=== PATIENT | male | born 1985 | race Caucasian/White ===

== ENCOUNTER → 2017-01-24 | Outpatient (CLI) | payer OTHER ==
[2015-10-21 18:05] VITALS: BP 126/81
[~2017-01-24] MED LIST: NS 100 ML IV 100 ML IV ONE
[2017-01-24 09:09] LABS: CREATININE 0.97 mg/dL (0.70-1.30)
--- NOTE | 2017-01-24 10:52 | CT ---
HISTORY: Renal cell carcinoma. Study: CT abdomen and pelvis with and without contrast Comparison: CT abdomen/pelvis dated January 22, 2016. Technique: Multiple axial images of the abdomen and pelvis were obtained from the lung bases to the pubic symph ysis both prior to and after the administration of IV contrast. Dose reduction techniques including Automated Exposure Control (AEC) and adjustment of mA and kV were utilized. Findings: Bibasilar scarring versus atelectasis. Otherwise, the visualized portions of the lung bases are unre markable. Postsurgical changes of the posterior right kidney appear unchanged. Bilateral nonobstruct ing renal nephroliths appear unchanged. The liver, spleen, pancreas, and adrenal glands are unremar kable in their CT appearance. The gallbladder is unremarkable in its CT appearance. No significant mesenteric lymphadenopathy or stranding can be observed. No free fluid or free air is seen within t he abdomen. The visualized large and small bowel appear normal. The appendix is normal. The osseous structures appear unchanged. No aggressive osseous lesions. Prostatic cyst appears unchanged. The b ladder appears normal. IMPRESSION: 1. Postsurgical changes of the right kidney without evidence of local recurrence or metastatic dise ase. 2. Other chronic findings as above. Reported By:
== END | disposition home or self-care (01) ==
LOC: RAD 08:28
PROVIDERS: ATTEND Urology
DX: C64.1 Malignant neoplasm of right kidney, except renal pelvis (principal); Z98.890 Other specified postprocedural states
CPT/HCPCS: 36415; 74178; 82565; 84520

== ENCOUNTER 2017-04-02 12:29 | Emergency (ER) | payer OTHER ==
[2017-04-02 12:37] VITALS: BP 141/89; BMI 34.7
[2017-04-02] MEDS ORDERED: TORADOL 60 MG VIAL IM ONE (13:40)
--- NOTE | 2017-04-02 13:43 | DR.GENAD ---
HPI - PCP Primary Care Physician: Biju - Complaint/Symptoms Chief Complaint Doctors Comments: Patient complains of right foot pain and swelling for the past three days. States he works at night and was having right foot pain two days ago that improved some at work but started back yesterday with the pain being 6 or 10. He denies any recent trauma other than wearing work booths. States family member and friends has been telling him he had gout. [facility] he has been taking Motrin 500mg two pills ever four hours as needed. He is a patient of Dr. Ivy. Chief Complaint:: Swollen right foot since Tuesday, very painful - Nurses notes reviewed Nurses Notes Review: Yes - Source History Provided: Patient - Mode of Arrival Mode of Arrival: Ambulatory - Timing Onset of Chief Complaint: 04/06/17 Came on: Gradually - Duration Duration: Intermittent How lon Duration: Days - Location Location: right foot pain - Severity Severity: Moderate, Severe - Modifying Factors Worsens:: walking and standing Improves:: nothing PMH - PMH Past Medical History: Yes Past Medical History: Kidney Stones Past Medical History Comment: Renal cell carcinoma 2014 Past Surgical History: No Surgical History: Other - Family History History of Family Medical Conditions: Yes Family Medical History: Cancer, Hypertension - Social History Does patient currently use any type of tobacco product: No Have you used tobacco products in the last 12 months: No Type of Tobacco Use: Cigarettes Does any household member use tobacco: No Alcohol Use: Rarely Do you use any recreational Drugs:: No Lives With: Spouse Lives Where: Home - infectious screening In the last 2 months have you had wt loss of >10#?: NO Have you had fever, night sweats or hemotysis?: No Have you traveled outside the country in the last 6 months?: No Isolation: Standard ROS - Review of Systems Constitutional: No Symptoms Reported. negative: See HPI, Chills, Diaphoresis, Fever, Malaise, Weakness, Irritable, Fatigue, Loss of Appetite, Other Eyes: No Symptoms Reported ENTM: No Symptoms Reported Respiratoy: No Symptoms Reported Cardiovascular: No Symptoms Reported Gastrointestinal/Abdominal: No Symptoms Reported. negative: See HPI, Abdominal Pain, Constipation, Diarrhea, Nausea, Vomiting, Food Intolerance, Other Genitourinary: No Symptoms Reported Neurological: No Symptoms Reported, Problems Walking (right foot pain) Musculoskeletal: No Symptoms Reported, Right, Foot Integumentary: No Symptoms Reported Hematologic/Lymphatic: No Symptoms Reported Endocrine: No Symptoms Reported. negative: See HPI, Excessive Sweating, Flushing, Intolerance to Cold, Intolerance to Heat, Increased Hunger, Increased Thirst, Increased Urine, Unexplained Weight Gain, Unexplained Weight Loss, Failure to Thrive, Decreased Appetite, Other Psychiatric: No Symptoms Reported. negative: See HPI, Anxiety, Depression, Hallucinations, Excessive crying, Suicidal, Other PE - Vital Signs Vitals: Temperature 97.8 F Pulse Rate 77 Respiratory Rate 20 Blood Pressure [Left Arm] 135/86 Blood Pressure 141/89 O2 Sat by Pulse Oximetry 97 - General Limitations: No Limitations General Appearance: Alert, In Distress (moderate) - Head Head Exam: Normal Inspection, Atraumatic, Normocephalic - Eyes Eye exam: Normal Appearance, PERRL, EOMI. negative: Scleral Icterus, Conjunctival Injection, Nystagmus, Miosis, Mydrasis, Periorbital Swelling, Periorbital Tenderness, Other - ENT ENT Exam: Normal Exam, Normal Oropharynx, Normal External Ear Exam, Mucous Membranes Moist, TM's Normal Bilaterally External Ear Exam: Normal External Inspection TM/Canal Exam: Bilateral Normal Nose Exam: Normal Nose Exam Mouth Exam: Normal Inspection Throat Exam: Normal Inspection - Neck Neck Exam: Normal Inspection, Full ROM, Trachea Midline - Chest Chest Inspection: Normal Inspection, Symmetric Chest Wall Rise. negative: Tenderness, Rash, Abscess, Other - Respiratory Respiratory Exam: Normal Lung Sounds Bilat Respiratory Exam: Bilateral Clear to Auscultation - Cardiovascular Cardiovascular Exam: Regular Rate, Normal Rhythm, Normal Heart Sounds - Abdominal Exam Abdominal Exam: Normal Inspection, Normal Bowel Sounds, Soft. negative: Distention, Tenderness, Guarding, Rebound, Rigidity, Dimnished Bowel Sounds, Hyperactive Bowel Sounds, Hypoactive Bowel Sounds, Organomegaly, Trauma, Incision, Ascites, Mass, Bruit, Pulsatile Mass, Hernia, Other Abdominal Tenderness: negative: RUQ, RLQ, LUQ, LLQ, Epigastrium, Suprapubic, Diffuse, Mild, Moderate, Severe, Other - Extremities Extremities Exam: Normal Inspection, Full ROM, Tenderness (right swage tender dorsal foot; no erythema or swelling), Normal Capillary Refill - Back Back Exam: Normal Inspection, Full ROM. negative: Tenderness, (R) CVA Tenderness, (L) CVA Tenderness, Muscle Spasm, Paraspinal Tenderness, Vertebral Tenderness, Rashes, (R) Sciatic Notch Tenderness, (L) Sciatic Notch Tendern, (R ) Straight Leg Raise, (L) Straight Leg Raise, Other - Neurologic Neurological Exam: Alert, Oriented X3, CN II-XII Intact, Reflexes Normal. negative: Normal Gait (gait not tested) - Psychiatric Psychiatric Exam: Normal Affect, Normal Mood. negative: Depressed, Agitated, Anxious, Flat Affect, Manic, Homicidal Ideation, Suicidal Ideation, Other - Skin Skin Exam: Warm, Dry, Intact, Normal Color. negative: Rash, Cyanosis, Diaphoresis, Erythema, Pallor, Mottled, Other ROR - Labs Reviewed Laboratory Results Reviewed?: Yes (all x-ray results reviewed and discussed with patient and family) Laboratory: Uric Acid 7.8 mg/dL (3.5-7.2) H 04/02/17 13:48 - XRAY XRAY Interpreted by: Radiologist (right foot: Traumatic sof tissue swelling of the right foot and great toe without evidence for an acute fracture, subluxation , dislocation or radiopaque foreign body.) - Diagnosis Discharge Problem: Right foot pain Gout Qualifiers: Encounter type: initial encounter Chronicity: acute - Discharge Plan Disposition: HOME, SELF-CARE Condition: Stable Prescriptions: Acetaminophen/Codeine Tab [TYLENOL w/CODEINE #3 (300 MG/30 MG) *] 1 tab PO Q4- 6H PRN #24 tab PRN Reason: Pain Colchicine [Colcrys Tab 0.6 mg] 0.6 mg PO BID PRN #30 tab PRN Reason: Naproxen [NAPROSYN 500 MG *] 500 mg PO BID PRN #40 tab PRN Reason: Pain/Inflammation - Follow ups/Referrals Follow ups/Referrals: Andi Ivy [Primary Care Provider] - 3 days - Instructions Instructions: Gout, [id number], Low-Purine Diet, Musculoskeletal Pain
[2017-04-02] MEDS ORDERED: TORADOL 60 MG VIAL ONE (13:57)
--- NOTE | 2017-04-02 14:27 | RAD ---
History: Digital injury / trauma. Exam: 3 view series of the right foot and great toe. Comparison: None. Findings: There is diffuse soft tissue swelling of the right foot and great toe without evidence for acute fra cture, subluxation, or dislocation. No unexpected radiopaque foreign bodies are seen in the field of view, either. No other bony or soft tissue injuries / abnormalities are observed. Impression: Traumatic soft tissue swelling of the right foot and great toe without evidence for an a cute fracture, subluxation, dislocation, or radiopaque foreign body. Reported By:
[2017-04-02] MEDS ORDERED: COLCRYS TAB 0.6 MG ONE (15:53)
[2017-04-02] MEDS ORDERED: COLCRYS TAB 0.6 MG PO SCH (16:00)
== END 2017-04-02 16:03 | disposition home or self-care (01) ==
LOC: ER 12:39
DX: M10.9 Gout, unspecified (principal); M79.671 Pain in right foot
CPT/HCPCS: 36415; 73630; 84550; 96372; 99282; J1885